=== PATIENT | male | born 1945 | race Caucasian/White ===

== ENCOUNTER 2017-06-14 15:38 | Inpatient (IN) | payer MEDICARE ==
[2017-06-14] VITALS (9 sets, daily range): BP systolic 83–117; BP diastolic 53–73
[~2017-06-14] VITALS: Ht 172.7 cm; Wt 80.3 kg
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
--- NOTE | ~2017-06-14 | EC ---
PATIENT:KEVIN MARTINO JR DATE OF SERVICE: 06/14/17 SEX: M MEDICAL RECORD: [id number] DATE OF : 41 LOCATION:[facility] AGE OF PATIENT: 72 ADMISSION DATE: 06/14/17 REFERRING PHYSICIAN: INTERPRETING PHYSICIAN: MARIOLA VALADEZ MD ECHOCARDIOGRAM REPORT ECHO CHARGES 4 ECHO COMPLETE Date: 06/15 CLINICAL DIAGNOSIS: CHF ECHOCARDIOGRAPHIC MEASUREMENTS (adult normal given) AC root (d.<3.7cm) 2.8 cm LV Septum d (<1.2 cm> 1.7 cm Valve Excursion 0.7 cm LV Septum (systole) 2.1 cm Left Atria (s.<4.0cm> 4.1 cm LVPW d(<1.2cm) 1.9 cm RV (d.<2.3cm) 4.8 cm LVPW (sytole) 2.4 cm LV diastole(<5.6CM) 6.9 cm MV E-F(>70mm/sec) cm LV systole 5.2 cm LVOT Diameter 0.8 cm MV exc.(>10mm) cm Est.ejection fraction (50-75%) % DOPPLER: LVIT cm/sec A 150 cm/sec E 187 cm/sec LA cm/sec RVSP 66 mmHg LVOT 122 cm/sec AOP1/2T m/s Asc. Ao 308 cm/sec RVOT 88 cm/sec RA cm/sec PA 183 cm/sec AV Gradient Peak 37.91mmHg AV Mean 23.07mmHg AV Area 0.2 cm MV Gradient Peak 13.15mmHg MV Mean 6.99 mmHg MV Area cm COMMENTS: Script Writer: Campbell TIERNEY Network Technical Analyst: 1 Dr. Valadez TAPE# PACS Pericardial Effusion N DATE OF SERVICE: 06/15/2017 FINDINGS: 1. Left ventricular chamber size is mildly dilated. Left ventricular systolic function is preserved at 60%. 2. Left atrium is enlarged at 4.1 cm. Right atrium and right ventricular chamber sizes are severely dilated. 3. Valvular structures: Aortic valve demonstrates severe calcific aortic stenosis. The valve area calculates to less than 0.5 cm-squared with a gradient of 37 mm across the valve. The mitral valve as well demonstrates ECHOCARDIOGRAM REPORT [id number] KEVIN MARTINO JR [id number] mitral stenosis. There is a gradient of 13 mm across this valve. 4. Doppler interrogation elsewise reveals mild mitral regurgitation. No other valvular insufficiency or stenosis. Pulmonary systolic pressure is significantly elevated estimated at 66 mmHg. 5. No evidence of pericardial effusion or left ventricular thrombus. TRANSINT:[id number] Voice Confirmation ID: [id number] DOCUMENT ID: [id number] MARIOLA VALADEZ MD at 1006 CC: [id number] DICTATION DATE: 06/16/17 1000 MEDICAL DERMATOLOGIST: 06/16/17 1245 ADM IN [facility] [address] [id number]
[~2017-06-14 15:38] MED LIST: BAYER ASPIRIN325 MG PO; HYDROCODONE-APA1 TAB PO; METFORMIN HCL500 M1 PO; PRILOSEC20 MG PO; PRINIVIL20 MG; ZOCOR40 MG PO
[2017-06-14 16:18] LABS: HEMATOCRIT 33.3 % (42.0-54.0); HEMOGLOBIN 10.9 g/dL (13.5-17.5); MCH 30.7 pg (26.0-34.0); MCHC 32.7 g/dL (31.0-37.0); MCV 93.8 fL (80.0-100.0); MEAN PLATELET VOLUME 10.1 fL (7.4-10.4); PLATELET COUNT 216 10x3/uL (130-400); RBC 3.55 10x6/uL (4.20-6.10); RDW 13.9 % (11.5-14.5); WBC 32.7 10x3/uL (4.8-10.8)
[2017-06-14 16:19] LABS: INR 1.43 (0.85-1.17); PROTIME 16.9 SECONDS (11.6-15.0)
[2017-06-14 16:20] LABS: APTT 30.1 SECONDS (22.8-39.4)
[2017-06-14 16:22] LABS: D-DIMER-QUANTITATIVE 2.28 ug/mLFEU (0.20-0.54)
[2017-06-14 16:25] LABS: ALBUMIN 2.3 g/dL (3.4-5.0); ALKALINE PHOSPHATASE 65 U/L (46-116); ALT (SGPT) 13 U/L (10-68); CALC OSMOLALITY 282 mosm/kg (275-300); CARBON DIOXIDE 28.6 mmol/L (21.0-32.0); CHLORIDE - SERUM 100 mmol/L (98-107); CREATININE - SERUM 2.1 mg/dL (0.6-1.3); GLUCOSE 114 mg/dL (74-106); POTASSIUM - SERUM 5.4 mmol/L (3.5-5.1); PROTEIN - SERUM 6.1 g/dL (6.4-8.2); SODIUM 135 mmol/L (136-145); UREA NITROGEN 45 mg/dL (7-18); eGFR NON AFRICAN AMERICAN 33 mL/min (90-120)
[2017-06-14 16:34] LABS: APPEARANCE CLEAR (CLEAR); BILIRUBIN NEGATIVE (NEGATIVE); COLOR YELLOW (YELLOW); GLUCOSE NEGATIVE (NEGATIVE); KETONE NEGATIVE (NEGATIVE); NITRITE NEGATIVE (NEGATIVE); PROTEIN TRACE mg/dL (NEGATIVE); SPECIFIC GRAVITY 1.015 (1.005-1.020); UROBILINOGEN NORMAL (NORMAL)
[2017-06-14 16:42] LABS: CKMB 1.5 U/L (0.0-3.6); CREATINE KINASE 152 UL (21-232)
[2017-06-14 16:46] LABS: TROPONIN-I 0.099 ng/mL (0.000-0.060)
[2017-06-14 17:44] LABS: LYMPHOCYTES 4 % (15-50); MONOCYTES 2 % (2-11); NEUTROPHILS 91 % (40-80); PLATELET ESTIMATE NORMAL
[2017-06-14] MEDS ORDERED: FUROSEMIDE40 MG PO (22:08)
[2017-06-14] MEDS ORDERED: KLOR-CON M2020 MEQ PO (22:09)
[2017-06-15] VITALS (94 sets, daily range): BP systolic 74–129; BP diastolic 43–99; BMI 28.9
[2017-06-15 05:09] LABS: BASOPHILS 0.1 % (0-2); EOSINOPHILS 0 % (0-7); HEMATOCRIT 39.8 % (42.0-54.0); HEMOGLOBIN 12.8 g/dL (13.5-17.5); IMMATURE GRANULOCYTES 0.8 % (0-5); LYMPHOCYTES 1.6 % (15-50); MCH 31.1 pg (26.0-34.0); MCHC 32.2 g/dL (31.0-37.0); MCV 96.6 fL (80.0-100.0); MEAN PLATELET VOLUME 10.6 fL (7.4-10.4); MONOCYTES 3.1 % (2-11); NEUTROPHILS 94.4 % (40-80); PLATELET COUNT 238 10x3/uL (130-400); RBC 4.12 10x6/uL (4.20-6.10); RDW 14.3 % (11.5-14.5); WBC 47.1 10x3/uL (4.8-10.8)
[2017-06-15 05:43] LABS: CALC OSMOLALITY 285 mosm/kg (275-300); CALCIUM 8.5 mg/dL (8.5-10.1); CARBON DIOXIDE 31.5 mmol/L (21.0-32.0); CHLORIDE - SERUM 100 mmol/L (98-107); CKMB 2.1 U/L (0.0-3.6); CREATINE KINASE 228 UL (21-232); CREATININE - SERUM 1.8 mg/dL (0.6-1.3); GLUCOSE 97 mg/dL (74-106); POTASSIUM - SERUM 4.9 mmol/L (3.5-5.1); PRO BNP 28343 pg/mL (0-125); SODIUM 138 mmol/L (136-145); T4 THYROXIN - FREE 0.97 ng/dL (0.76-1.46); THYROID STIMULATING HORMONE 1.25 uIU/mL (0.36-3.74); UREA NITROGEN 41 mg/dL (7-18); eGFR NON AFRICAN AMERICAN 39 mL/min (90-120)
[2017-06-16] VITALS (41 sets, daily range): BP systolic 86–123; BP diastolic 47–75; Ht 172.7 cm; Wt 80.3 kg
[2017-06-16 04:52] LABS: ALKALINE PHOSPHATASE 73 U/L (46-116); ALT (SGPT) 11 U/L (10-68); BILIRUBIN - TOTAL 0.74 mg/dL (0.2-1.3); CALCIUM 7.8 mg/dL (8.5-10.1); CHLORIDE - SERUM 101 mmol/L (98-107); PRO BNP 11677 pg/mL (0-125); PROTEIN - SERUM 5.6 g/dL (6.4-8.2); SODIUM 139 mmol/L (136-145)
[2017-06-16 04:53] LABS: BASOPHILS 0 % (0-2); EOSINOPHILS 0.1 % (0-7); HEMATOCRIT 37.1 % (42.0-54.0); HEMOGLOBIN 11.8 g/dL (13.5-17.5); IMMATURE GRANULOCYTES 0.9 % (0-5); LYMPHOCYTES 1.9 % (15-50); MCH 30.6 pg (26.0-34.0); MCHC 31.8 g/dL (31.0-37.0); MCV 96.4 fL (80.0-100.0); MEAN PLATELET VOLUME 10.7 fL (7.4-10.4); MONOCYTES 3.6 % (2-11); NEUTROPHILS 93.5 % (40-80); PLATELET COUNT 192 10x3/uL (130-400); RBC 3.85 10x6/uL (4.20-6.10); RDW 14.2 % (11.5-14.5); WBC 40.1 10x3/uL (4.8-10.8)
[2017-06-16 04:55] LABS: ALBUMIN 1.7 g/dL (3.4-5.0); CALC OSMOLALITY 286 mosm/kg (275-300); CREATININE - SERUM 0.9 mg/dL (0.6-1.3); GLUCOSE 150 mg/dL (74-106); POTASSIUM - SERUM 3.9 mmol/L (3.5-5.1); UREA NITROGEN 29 mg/dL (7-18); eGFR NON AFRICAN AMERICAN 88 mL/min (90-120)
[2017-06-17] VITALS (24 sets, daily range): BP systolic 82–121; BP diastolic 49–88
[2017-06-17 04:16] LABS: WBC 26.5 10x3/uL (4.8-10.8)
[2017-06-17 04:17] LABS: BASOPHILS 0 % (0-2); EOSINOPHILS 0.2 % (0-7); HEMATOCRIT 36.9 % (42.0-54.0); HEMOGLOBIN 11.7 g/dL (13.5-17.5); IMMATURE GRANULOCYTES 0.6 % (0-5); LYMPHOCYTES 3.6 % (15-50); MCH 30.9 pg (26.0-34.0); MCHC 31.7 g/dL (31.0-37.0); MCV 97.4 fL (80.0-100.0); MEAN PLATELET VOLUME 10.6 fL (7.4-10.4); MONOCYTES 4.1 % (2-11); NEUTROPHILS 91.5 % (40-80); PLATELET COUNT 140 10x3/uL (130-400); RBC 3.79 10x6/uL (4.20-6.10); RDW 14.2 % (11.5-14.5)
[2017-06-17 04:35] LABS: ALBUMIN 1.7 g/dL (3.4-5.0); ALKALINE PHOSPHATASE 73 U/L (46-116); ALT (SGPT) 10 U/L (10-68); BILIRUBIN - TOTAL 0.61 mg/dL (0.2-1.3); CALCIUM 7.7 mg/dL (8.5-10.1); CARBON DIOXIDE 34.6 mmol/L (21.0-32.0); CHLORIDE - SERUM 99 mmol/L (98-107); MAGNESIUM - SERUM 1.1 mg/dL (1.8-2.4); POTASSIUM - SERUM 3.7 mmol/L (3.5-5.1); PRO BNP 11730 pg/mL (0-125); PROTEIN - SERUM 5.7 g/dL (6.4-8.2); SODIUM 137 mmol/L (136-145); UREA NITROGEN 23 mg/dL (7-18); eGFR NON AFRICAN AMERICAN 78 mL/min (90-120)
[2017-06-17 04:39] LABS: CALC OSMOLALITY 276 mosm/kg (275-300); GLUCOSE 87 mg/dL (74-106)
[2017-06-18] VITALS (23 sets, daily range): BP systolic 102–125; BP diastolic 50–70
[2017-06-18 02:56] LABS: BASOPHILS 0.1 % (0-2); EOSINOPHILS 0.2 % (0-7); HEMATOCRIT 36.1 % (42.0-54.0); HEMOGLOBIN 11.4 g/dL (13.5-17.5); IMMATURE GRANULOCYTES 0.4 % (0-5); LYMPHOCYTES 4.6 % (15-50); MCH 30.5 pg (26.0-34.0); MCHC 31.6 g/dL (31.0-37.0); MCV 96.5 fL (80.0-100.0); MEAN PLATELET VOLUME 10.3 fL (7.4-10.4); MONOCYTES 5.9 % (2-11); NEUTROPHILS 88.8 % (40-80); PLATELET COUNT 136 10x3/uL (130-400); RBC 3.74 10x6/uL (4.20-6.10); RDW 13.9 % (11.5-14.5)
[2017-06-18 03:23] LABS: ALKALINE PHOSPHATASE 80 U/L (46-116); ALT (SGPT) 12 U/L (10-68); CALC OSMOLALITY 279 mosm/kg (275-300); CALCIUM 7.8 mg/dL (8.5-10.1); CARBON DIOXIDE 37.7 mmol/L (21.0-32.0); CHLORIDE - SERUM 99 mmol/L (98-107); DIGOXIN 2.34 ng/mL (0.90-2.00); GLUCOSE 125 mg/dL (74-106); MAGNESIUM - SERUM 1.1 mg/dL (1.8-2.4); POTASSIUM - SERUM 3.8 mmol/L (3.5-5.1); PRO BNP 17552 pg/mL (0-125); PROTEIN - SERUM 5.8 g/dL (6.4-8.2); SODIUM 138 mmol/L (136-145); UREA NITROGEN 21 mg/dL (7-18); eGFR NON AFRICAN AMERICAN 78 mL/min (90-120)
[2017-06-19] VITALS (15 sets, daily range): BP systolic 100–122; BP diastolic 55–83
[2017-06-19 03:05] LABS: BASOPHILS 0.1 % (0-2); EOSINOPHILS 0.7 % (0-7); HEMATOCRIT 37.9 % (42.0-54.0); HEMOGLOBIN 11.9 g/dL (13.5-17.5); IMMATURE GRANULOCYTES 0.6 % (0-5); LYMPHOCYTES 6.8 % (15-50); MCH 30.2 pg (26.0-34.0); MCHC 31.4 g/dL (31.0-37.0); MCV 96.2 fL (80.0-100.0); MEAN PLATELET VOLUME 10.5 fL (7.4-10.4); NEUTROPHILS 82.8 % (40-80); PLATELET COUNT 150 10x3/uL (130-400); RBC 3.94 10x6/uL (4.20-6.10); RDW 13.9 % (11.5-14.5)
[2017-06-19 03:35] LABS: ALBUMIN 2.5 g/dL (3.4-5.0); ALKALINE PHOSPHATASE 80 U/L (46-116); ALT (SGPT) 13 U/L (10-68); CALC OSMOLALITY 280 mosm/kg (275-300); CALCIUM 8.2 mg/dL (8.5-10.1); CARBON DIOXIDE 38.5 mmol/L (21.0-32.0); CHLORIDE - SERUM 99 mmol/L (98-107); CREATININE - SERUM 0.9 mg/dL (0.6-1.3); GLUCOSE 115 mg/dL (74-106); PHOSPHOROUS 2.2 mg/dL (2.5-4.9); POTASSIUM - SERUM 3.8 mmol/L (3.5-5.1); PROTEIN - SERUM 6.4 g/dL (6.4-8.2); SODIUM 139 mmol/L (136-145); UREA NITROGEN 18 mg/dL (7-18); eGFR NON AFRICAN AMERICAN 88 mL/min (90-120)
[2017-06-19 03:49] LABS: MAGNESIUM - SERUM 1.7 mg/dL (1.8-2.4)
[2017-06-20 03:00] VITALS: BP 118/65
[2017-06-20 04:29] LABS: BASOPHILS 0.1 % (0-2); EOSINOPHILS 0.7 % (0-7); HEMATOCRIT 38.2 % (42.0-54.0); HEMOGLOBIN 12.1 g/dL (13.5-17.5); IMMATURE GRANULOCYTES 0.6 % (0-5); LYMPHOCYTES 8.1 % (15-50); MCH 30.5 pg (26.0-34.0); MCHC 31.7 g/dL (31.0-37.0); MCV 96.2 fL (80.0-100.0); MEAN PLATELET VOLUME 10.7 fL (7.4-10.4); MONOCYTES 10.6 % (2-11); NEUTROPHILS 79.9 % (40-80); PLATELET COUNT 166 10x3/uL (130-400); RBC 3.97 10x6/uL (4.20-6.10); WBC 12.2 10x3/uL (4.8-10.8)
[2017-06-20 04:57] LABS: CALC OSMOLALITY 279 mosm/kg (275-300); CALCIUM 8.5 mg/dL (8.5-10.1); CARBON DIOXIDE 39.3 mmol/L (21.0-32.0); CHLORIDE - SERUM 99 mmol/L (98-107); CREATININE - SERUM 0.8 mg/dL (0.6-1.3); GLUCOSE 120 mg/dL (74-106); POTASSIUM - SERUM 4.1 mmol/L (3.5-5.1); PRO BNP 13069 pg/mL (0-125); SODIUM 138 mmol/L (136-145); UREA NITROGEN 20 mg/dL (7-18); eGFR NON AFRICAN AMERICAN > 90 mL/min (90-120)
[2017-06-20 06:26] VITALS: BP 119/61
[2017-06-20 13:46] VITALS: BP 107/61
[2017-06-20 15:29] VITALS: BP 111/59
[2017-06-20 20:00] VITALS: BP 110/51
[2017-06-21 01:00] VITALS: BP 106/59
[2017-06-21 05:00] VITALS: BP 112/58
[2017-06-21 05:08] LABS: BASOPHILS 0.1 % (0-2); EOSINOPHILS 1.4 % (0-7); HEMATOCRIT 37.5 % (42.0-54.0); HEMOGLOBIN 11.8 g/dL (13.5-17.5); IMMATURE GRANULOCYTES 0.9 % (0-5); LYMPHOCYTES 9.5 % (15-50); MCH 29.9 pg (26.0-34.0); MCHC 31.5 g/dL (31.0-37.0); MCV 95.2 fL (80.0-100.0); MEAN PLATELET VOLUME 10.7 fL (7.4-10.4); MONOCYTES 10.4 % (2-11); NEUTROPHILS 77.7 % (40-80); PLATELET COUNT 214 10x3/uL (130-400); RBC 3.94 10x6/uL (4.20-6.10); RDW 14.1 % (11.5-14.5); WBC 13.8 10x3/uL (4.8-10.8)
[2017-06-21 05:47] LABS: CALC OSMOLALITY 275 mosm/kg (275-300); CALCIUM 8.1 mg/dL (8.5-10.1); CHLORIDE - SERUM 95 mmol/L (98-107); CREATININE - SERUM 0.9 mg/dL (0.6-1.3); GLUCOSE 124 mg/dL (74-106); POTASSIUM - SERUM 4.1 mmol/L (3.5-5.1); SODIUM 136 mmol/L (136-145); UREA NITROGEN 22 mg/dL (7-18); eGFR NON AFRICAN AMERICAN 88 mL/min (90-120)
[2017-06-21 07:00] VITALS: BP 113/59
[2017-06-21 12:00] VITALS: BP 101/49
[2017-06-21 17:14] VITALS: BP 106/50
[2017-06-21 20:36] VITALS: BP 111/57
[2017-06-22] VITALS: BP 119/63
[2017-06-22 04:49] LABS: BASOPHILS 0.1 % (0-2); EOSINOPHILS 0.6 % (0-7); HEMATOCRIT 38.5 % (42.0-54.0); HEMOGLOBIN 12.3 g/dL (13.5-17.5); IMMATURE GRANULOCYTES 1.2 % (0-5); LYMPHOCYTES 5.5 % (15-50); MCH 30.5 pg (26.0-34.0); MCHC 31.9 g/dL (31.0-37.0); MCV 95.5 fL (80.0-100.0); MEAN PLATELET VOLUME 10.3 fL (7.4-10.4); MONOCYTES 7.1 % (2-11); NEUTROPHILS 85.5 % (40-80); PLATELET COUNT 207 10x3/uL (130-400); RBC 4.03 10x6/uL (4.20-6.10); WBC 14.2 10x3/uL (4.8-10.8)
[2017-06-22 05:10] LABS: CALC OSMOLALITY 274 mosm/kg (275-300); CALCIUM 8.3 mg/dL (8.5-10.1); CHLORIDE - SERUM 93 mmol/L (98-107); GLUCOSE 133 mg/dL (74-106); POTASSIUM - SERUM 3.8 mmol/L (3.5-5.1); PRO BNP 6990 pg/mL (0-125); SODIUM 135 mmol/L (136-145); UREA NITROGEN 21 mg/dL (7-18); eGFR NON AFRICAN AMERICAN 78 mL/min (90-120)
[2017-06-22 05:20] VITALS: BP 117/61
[2017-06-22 05:29] LABS: CARBON DIOXIDE 40.4 mmol/L (21.0-32.0)
[2017-06-22 09:25] VITALS: BP 96/50
[2017-06-22 12:22] VITALS: BP 111/58; BP 96/50
[2017-06-22 16:46] VITALS: BP 102/53
[2017-06-22 21:27] VITALS: BP 113/60
[2017-06-23] VITALS (13 sets, daily range): BP systolic 95–113; BP diastolic 49–64
[2017-06-23 04:23] LABS: BASOPHILS 0.1 % (0-2); EOSINOPHILS 0.8 % (0-7); HEMATOCRIT 35.9 % (42.0-54.0); HEMOGLOBIN 11.3 g/dL (13.5-17.5); IMMATURE GRANULOCYTES 0.9 % (0-5); LYMPHOCYTES 6.3 % (15-50); MCH 30.2 pg (26.0-34.0); MCHC 31.5 g/dL (31.0-37.0); MEAN PLATELET VOLUME 10.1 fL (7.4-10.4); NEUTROPHILS 84.9 % (40-80); PLATELET COUNT 223 10x3/uL (130-400); RBC 3.74 10x6/uL (4.20-6.10); RDW 13.9 % (11.5-14.5); WBC 16.9 10x3/uL (4.8-10.8)
[2017-06-23 04:52] LABS: CALC OSMOLALITY 278 mosm/kg (275-300); CALCIUM 7.8 mg/dL (8.5-10.1); CHLORIDE - SERUM 94 mmol/L (98-107); CREATININE - SERUM 0.9 mg/dL (0.6-1.3); GLUCOSE 120 mg/dL (74-106); POTASSIUM - SERUM 3.4 mmol/L (3.5-5.1); PRO BNP 6917 pg/mL (0-125); SODIUM 138 mmol/L (136-145); UREA NITROGEN 19 mg/dL (7-18); eGFR NON AFRICAN AMERICAN 88 mL/min (90-120)
[2017-06-23 04:53] LABS: CARBON DIOXIDE 44.1 mmol/L (21.0-32.0)
[2017-06-24] VITALS (23 sets, daily range): BP systolic 93–117; BP diastolic 49–74
[2017-06-24 04:12] LABS: BASOPHILS 0.1 % (0-2); EOSINOPHILS 0.1 % (0-7); HEMATOCRIT 36.4 % (42.0-54.0); HEMOGLOBIN 11.6 g/dL (13.5-17.5); IMMATURE GRANULOCYTES 0.5 % (0-5); MCH 30.3 pg (26.0-34.0); MCHC 31.9 g/dL (31.0-37.0); MEAN PLATELET VOLUME 10.5 fL (7.4-10.4); MONOCYTES 2.2 % (2-11); NEUTROPHILS 95.1 % (40-80); PLATELET COUNT 216 10x3/uL (130-400); RBC 3.83 10x6/uL (4.20-6.10)
[2017-06-24 04:45] LABS: ALKALINE PHOSPHATASE 71 U/L (46-116); ALT (SGPT) 8 U/L (10-68); CALC OSMOLALITY 276 mosm/kg (275-300); CALCIUM 8.2 mg/dL (8.5-10.1); CHLORIDE - SERUM 93 mmol/L (98-107); CREATININE - SERUM 0.9 mg/dL (0.6-1.3); GLUCOSE 136 mg/dL (74-106); MAGNESIUM - SERUM 1.2 mg/dL (1.8-2.4); PHOSPHOROUS 3.2 mg/dL (2.5-4.9); POTASSIUM - SERUM 3.7 mmol/L (3.5-5.1); PRO BNP 5794 pg/mL (0-125); PROTEIN - SERUM 6.2 g/dL (6.4-8.2); SODIUM 136 mmol/L (136-145); UREA NITROGEN 20 mg/dL (7-18); eGFR NON AFRICAN AMERICAN 88 mL/min (90-120)
[2017-06-24 05:04] LABS: CARBON DIOXIDE 45.5 mmol/L (21.0-32.0)
[2017-06-25] VITALS (22 sets, daily range): BP systolic 96–114; BP diastolic 51–73
[2017-06-25 04:04] LABS: BASOPHILS 0 % (0-2); EOSINOPHILS 0 % (0-7); HEMATOCRIT 35.2 % (42.0-54.0); HEMOGLOBIN 11.2 g/dL (13.5-17.5); IMMATURE GRANULOCYTES 0.6 % (0-5); LYMPHOCYTES 1.9 % (15-50); MCH 30.4 pg (26.0-34.0); MCHC 31.8 g/dL (31.0-37.0); MCV 95.4 fL (80.0-100.0); MONOCYTES 2.8 % (2-11); NEUTROPHILS 94.7 % (40-80); PLATELET COUNT 240 10x3/uL (130-400); RBC 3.69 10x6/uL (4.20-6.10); WBC 24.3 10x3/uL (4.8-10.8)
[2017-06-25 04:08] LABS: CALCIUM 8.4 mg/dL (8.5-10.1); CHLORIDE - SERUM 91 mmol/L (98-107); POTASSIUM - SERUM 3.6 mmol/L (3.5-5.1); SODIUM 136 mmol/L (136-145); eGFR NON AFRICAN AMERICAN 78 mL/min (90-120)
[2017-06-25 04:09] LABS: CALC OSMOLALITY 283 mosm/kg (275-300); CARBON DIOXIDE 46.1 mmol/L (21.0-32.0); GLUCOSE 207 mg/dL (74-106); UREA NITROGEN 30 mg/dL (7-18)
[2017-06-26] VITALS (23 sets, daily range): BP systolic 97–176; BP diastolic 46–87
[2017-06-26 03:54] LABS: BASOPHILS 0.1 % (0-2); EOSINOPHILS 0 % (0-7); HEMATOCRIT 34.7 % (42.0-54.0); HEMOGLOBIN 10.9 g/dL (13.5-17.5); IMMATURE GRANULOCYTES 0.5 % (0-5); LYMPHOCYTES 1.8 % (15-50); MCH 30.4 pg (26.0-34.0); MCHC 31.4 g/dL (31.0-37.0); MCV 96.9 fL (80.0-100.0); MEAN PLATELET VOLUME 10.3 fL (7.4-10.4); MONOCYTES 2.6 % (2-11); PLATELET COUNT 267 10x3/uL (130-400); RBC 3.58 10x6/uL (4.20-6.10); RDW 14.2 % (11.5-14.5); WBC 28.4 10x3/uL (4.8-10.8)
[2017-06-26 04:05] LABS: ANION GAP 1.1 mmol/L (8-16); BILIRUBIN - TOTAL 0.67 mg/dL (0.2-1.3); CALCIUM 8.9 mg/dL (8.5-10.1); CREATININE - SERUM 1.1 mg/dL (0.6-1.3); PHOSPHOROUS 3.7 mg/dL (2.5-4.9); POTASSIUM - SERUM 3.8 mmol/L (3.5-5.1); PROTEIN - SERUM 6.2 g/dL (6.4-8.2)
[2017-06-26 04:06] LABS: MAGNESIUM - SERUM 2.1 mg/dL (1.8-2.4)
[2017-06-26 04:07] LABS: CARBON DIOXIDE 46.7 mmol/L (21.0-32.0)
[2017-06-27] VITALS (24 sets, daily range): BP systolic 91–142; BP diastolic 53–79
[2017-06-27 03:54] LABS: ALBUMIN 2.3 g/dL (3.4-5.0); ALKALINE PHOSPHATASE 72 U/L (46-116); ALT (SGPT) 12 U/L (10-68); BILIRUBIN - TOTAL 0.85 mg/dL (0.2-1.3); CALCIUM 8.7 mg/dL (8.5-10.1); GLUCOSE 203 mg/dL (74-106); PROTEIN - SERUM 6.6 g/dL (6.4-8.2); eGFR NON AFRICAN AMERICAN 78 mL/min (90-120)
[2017-06-27 03:56] LABS: BASOPHILS 0 % (0-2); EOSINOPHILS 0 % (0-7); HEMATOCRIT 37.7 % (42.0-54.0); HEMOGLOBIN 11.5 g/dL (13.5-17.5); IMMATURE GRANULOCYTES 0.6 % (0-5); LYMPHOCYTES 0.9 % (15-50); MCH 30.1 pg (26.0-34.0); MCHC 30.5 g/dL (31.0-37.0); MCV 98.7 fL (80.0-100.0); MEAN PLATELET VOLUME 10.4 fL (7.4-10.4); MONOCYTES 3.9 % (2-11); NEUTROPHILS 94.6 % (40-80); PLATELET COUNT 356 10x3/uL (130-400); RBC 3.82 10x6/uL (4.20-6.10); RDW 14.3 % (11.5-14.5); WBC 29.2 10x3/uL (4.8-10.8)
[2017-06-27 04:03] LABS: UREA NITROGEN 47 mg/dL (7-18)
[2017-06-27 04:08] LABS: CALC OSMOLALITY 293 mosm/kg (275-300); CHLORIDE - SERUM 97 mmol/L (98-107); SODIUM 138 mmol/L (136-145)
[2017-06-28] VITALS (25 sets, daily range): BP systolic 83–157; BP diastolic 49–92
[2017-06-29] VITALS (14 sets, daily range): BP systolic 63–134; BP diastolic 42–74
[2017-06-29 04:41] LABS: BASOPHILS 0 % (0-2); EOSINOPHILS 0 % (0-7); HEMATOCRIT 34.1 % (42.0-54.0); IMMATURE GRANULOCYTES 0.7 % (0-5); LYMPHOCYTES 1.9 % (15-50); MCH 29.6 pg (26.0-34.0); MCHC 29.3 g/dL (31.0-37.0); MCV 100.9 fL (80.0-100.0); MEAN PLATELET VOLUME 10.7 fL (7.4-10.4); MONOCYTES 8.6 % (2-11); NEUTROPHILS 88.8 % (40-80); PLATELET COUNT 267 10x3/uL (130-400); RBC 3.38 10x6/uL (4.20-6.10); RDW 14.3 % (11.5-14.5); WBC 23.3 10x3/uL (4.8-10.8)
[2017-06-29 04:48] LABS: ANION GAP 4.8 mmol/L (8-16); CALCIUM 8.7 mg/dL (8.5-10.1); CREATININE - SERUM 1.4 mg/dL (0.6-1.3); MAGNESIUM - SERUM 2.8 mg/dL (1.8-2.4); POTASSIUM - SERUM 4.2 mmol/L (3.5-5.1)
[2017-06-29 05:07] LABS: CARBON DIOXIDE 44.4 mmol/L (21.0-32.0)
== END 2017-06-29 19:05 | DRG 871 ==
LOC: D.ER 15:38 → D.M2 18:24 → D.ICU 18:24 → D.EDHOLD 18:24 → D.ICU 19:20 → D.M2 06-20 06:09 → D.ICU 06-23 16:00 → D.M2 06-29 14:43 → D.ICU 06-29 17:10
PROVIDERS: Family Medicine; Internal Medicine Pulmonary Disease
PROC: 5A12012 Performance of Cardiac Output, Single, Manual (ICD-10-PCS; principal; 2017-06-23)
PROC: 5A09457 Assistance with Respiratory Ventilation, 24-96 Consecutive Hours, Continuous Positive Airway Pressure (ICD-10-PCS; 2017-06-23)
DX: A41.9 Sepsis, unspecified organism (principal); J96.01 Acute respiratory failure with hypoxia; J96.02 Acute respiratory failure with hypercapnia; I50.33 Acute on chronic diastolic (congestive) heart failure; J15.5 Pneumonia due to Escherichia coli; I13.0 Hypertensive heart and chronic kidney disease with heart failure and stage 1 through stage 4 chronic kidney disease, or unspecified chronic kidney disease; N17.9 Acute kidney failure, unspecified; J44.1 Chronic obstructive pulmonary disease with (acute) exacerbation; L03.115 Cellulitis of right lower limb; J81.1 Chronic pulmonary edema; I82.811 Embolism and thrombosis of superficial veins of right lower extremity; J44.0 Chronic obstructive pulmonary disease with (acute) lower respiratory infection; J90 Pleural effusion, not elsewhere classified; N18.9 Chronic kidney disease, unspecified; I48.0 Paroxysmal atrial fibrillation; F17.200 Nicotine dependence, unspecified, uncomplicated; F10.20 Alcohol dependence, uncomplicated; I08.0 Rheumatic disorders of both mitral and aortic valves; I27.20 Pulmonary hypertension, unspecified; Z66 Do not resuscitate; E83.42 Hypomagnesemia; D64.9 Anemia, unspecified; R53.81 Other malaise; I46.9 Cardiac arrest, cause unspecified